=== PATIENT | female | born 1975 | race Caucasian/White ===

== ENCOUNTER 2017-01-19 05:16 | Emergency (ER) | payer MEDICAID ==
[~2017-01-19] VITALS: Ht 157.5 cm; Wt 85.7 kg
[2017-01-19] MEDS ORDERED: DIPHENHYDRAMINE 50 MG/ML, 1ML ONE (05:47)
[2017-01-19] MEDS ORDERED: PROCHLORPERAZINE 5 MG/ML, 2ML ONE (05:47)
[2017-01-19] MEDS ORDERED: SODIUM CHLORIDE FLUSH 10ML SYR IVF ONE (06:00)
[2017-01-19] MEDS ORDERED: SODIUM CHLORIDE 0.9% 1,000ML IVBOLUS ONE (06:00)
[2017-01-19] MEDS ORDERED: PROCHLORPERAZINE 5 MG/ML, 2ML IVPush ONE (06:00)
[2017-01-19] MEDS ORDERED: DIPHENHYDRAMINE 50 MG/ML, 1ML IVPush ONE (06:00)
[2017-01-19 06:25] LABS: BLOOD UREA NITROGEN 10 mg/dL (7-18)
[2017-01-19 06:31] LABS: ASPARTATE AMINO TRANSFERASE 12 U/L (15-37)
[2017-01-19 06:52] VITALS: BP 101/62
== END 2017-01-19 07:35 | disposition home or self-care (01) ==
LOC: ED 07:29
DX: G44.211 Episodic tension-type headache, intractable (principal)
CPT/HCPCS: 36415; 80053; 84703; 85025; 96361; 96374; 96375; 99284; J0780; J1200; J7030

== ENCOUNTER 2017-06-14 18:50 | Emergency (ER) | payer MEDICAID ==
[~2017-06-14] VITALS: Ht 157.5 cm; Wt 87.0 kg
[2017-06-14 19:19] VITALS: BP 146/89
[2017-06-14] MEDS ORDERED: SODIUM CHLORIDE 0.9% 1,000ML IVBOLUS ONE (19:30)
[2017-06-14] MEDS ORDERED: SODIUM CHLORIDE FLUSH 10ML SYR IVF ONE (19:30)
[2017-06-14] MEDS ORDERED: ONDANSETRON 2MG/ML, 2ML IVPush ONE (19:30)
[2017-06-14] MEDS ORDERED: HYDROmorphone 1 MG/ML, 1ML IVPush PRN (20:00)
[2017-06-14 20:01] LABS: HEMATOCRIT 43.2 % (34.6-47.8); HEMOGLOBIN 14.3 g/dL (11.7-16.4); WHITE BLOOD COUNT 13.3 x10^3/uL (3.4-10)
[2017-06-14 20:11] LABS: ASPARTATE AMINO TRANSFERASE 9 U/L (15-37); BLOOD UREA NITROGEN 8 mg/dL (7-18)
[2017-06-14] MEDS ORDERED: OMNIPAQUE 350 MG/ML, 100ML BOTTLE ONE (20:49)
== END 2017-06-14 21:37 | disposition home or self-care (01) ==
LOC: ED 21:16
DX: N30.00 Acute cystitis without hematuria (principal); F32.9 Major depressive disorder, single episode, unspecified; Z98.51 Tubal ligation status
CPT/HCPCS: 36415; 74177; 80053; 81001; 83690; 84703; 85025; 87086; 96360; 99285; J7030; Q9967